=== PATIENT | female | born 1935 | race Caucasian/White ===

== ENCOUNTER 2017-03-17 08:43 | Day surgery (SDC) | payer MEDICARE, OTHER ==
--- NOTE | 2017-03-17 08:33 | HP ---
DATE OF SURGERY: 03/17/2017 HISTORY OF PRESENT ILLNESS: The patient is an 81 year-old who had some pain radiating to her chest once in a while upper GI. She has a small hiatal hernia with some tertiary contractions of the esophagus. Dr. Blevins referred her for upper endoscopy for further evaluation. PAST MEDICAL HISTORY: She has a leaky heart valve. She had some kidney disease in the past. PAST SURGICAL HISTORY: Cataract surgery in the past. Heart stents in the past. Hysterectomy, knee implants, rotator cuff in the past. MEDICATIONS: Fosamax, Allopurinol for some gout, Norvasc, aspirin, Tenormin, Lipitor, Calcitriol, calcium with vitamin D, Plavix, isosorbide mononitrate, levofloxacin for some hyperthyroidism, some PRN Nitrostat, [place]-3 fish oil, oxybutynin, pantoprazole, potassium chloride, Demadex. ALLERGIES: NKDA. FAMILY HISTORY: Diabetes, hypertension. SOCIAL HISTORY: No smoking or alcohol abuse. REVIEW OF SYSTEMS: Twelve systems reviewed per admission assessment. Other systems negative or noncontributory as above and per preadmission questionnaire. PHYSICAL EXAMINATION: GENERAL: No acute distress. HEENT: Sclerae nonicteric. NECK: No JVD. CHEST: Equal excursion, nonlabored breathing. CVS: Regular rate and rhythm. ABDOMEN: Soft. No peritoneal signs on office exam. EXTREMITIES: No significant edema. NEURO: Alert, moving extremities symmetrically. No gross motor deficits noted. IMPRESSION: History of some reflux, pain radiating into her chest with cardiac etiology ruled out. Dr. Blevins would like upper endoscopy for further evaluation. The risks and benefits explained in detail including but not limited to bleeding or infection, small risk of bowel injury or perforation possibly requiring open procedure, small risk of missed or nondiagnosis or incomplete exam possibly requiring barium study or referral to specialist or procedures. She understands and agrees to the planned procedure and will proceed with outpatient EGD possible biopsy.
[~2017-03-17 08:43] MED LIST: DIPRIVAN 200 MG/20 ML IV ONE; Ketamine HCl 50 MG/ML IV ONE; Lactated Ringers 1,000 ML IV ONE; Lactated Ringers 1,000 ML IV SCH
[2017-03-17] MEDS ORDERED: Lactated Ringers 1,000 ML IV ONE (12:13)
[2017-03-17 13:03] VITALS: BP 122/48; PULSE 75; O2SAT 98
--- NOTE | 2017-03-17 13:34 | OP ---
SURGERY DATE: 03/17/17 SURGERY TIME: 1210 PREOPERATIVE DIAGNOSIS: 1. HISTORY OF SOME EPIGASTRIC PAIN RADIATING TO HER CHEST. 2. HISTORY OF UPPER GASTROINTESTINAL SHOWING SMALL HIATAL HERNIAS AND TERTIARY CONTRACTIONS OF THE ESOPHAGUS. POSTOPERATIVE DIAGNOSIS: 1. MINIMAL TO MILD GASTRITIS. 2. SMALL HIATAL HERNIA. 3. TERTIARY CONTRACTION OF THE ESOPHAGUS. PROCEDURE: 1. Esophagogastroduodenoscopy with cold biopsy of the small bowel to evaluate for celiac sprue. 2. Cold biopsy of antrum to evaluate for Helicobacter pylori. 3. Cold biopsy of distal esophagus at the gastroesophageal junction to evaluate for very, very short segment of early distal gastroesophagitis vs just normal variation in the gastroesophageal junction. SURGEON: Dr. Dariusz Mehta. ANESTHESIA: MAC. ESTIMATED BLOOD LOSS: Minimal. INDICATIONS: As noted above. Risks and benefits explained in detail, but not limited to. Consent was obtained. DESCRIPTION OF PROCEDURE AND FINDINGS: The patient was taken to the OR, MAC anesthesia was introduced. After official time-out, no disagreement in planned procedure. Bite block positioned. Video gastroscope easily passed down the esophagus through the patent pylorus to the junction of the 2nd and 3rd portion of the duodenum. On withdrawal of the scope, she had a little bit of flattening of the folds in the duodenum. As she had had epigastric pain, warranted biopsy for sprue. Cold biopsy of the small bowel was obtained to evaluate for sprue. Good hemostasis noted. There were no signs of any obvious ulcers or other inflammation. Scope pulled back into the antrum. Had some minimal to mild gastritis. Given her symptoms, cold biopsy was taken to evaluate for Helicobacter pylori. Good hemostasis noted. There were no signs of any obvious ulcers on retroflex or no signs of any obvious polyps, masses, or other mucosal lesions. She did have a very small hiatal hernia at the gastroesophageal junction. Scope was straightened. The gastroesophageal junction noted at about 37 cm. Cold biopsy was taken of the margin of the gastroesophageal junction to evaluate for very, very short segment of early gastroesophagitis vs just normal variation of the gastroesophageal junction and the Z line. Otherwise, the scope was slowly, carefully withdrawn through the esophagus. There were no signs of any obvious mucosal lesions or masses. She did have some tertiary contractions of the esophagus. The patient tolerated the procedure well. There were no immediate complications. No obvious masses in the esophagus. Will see if she has any family out in the waiting area to discuss any findings with.
== END 2017-03-17 13:37 | disposition home or self-care (01) ==
LOC: SDC 08:43
PROVIDERS: ATTEND Surgery
PROC: 0DB88ZX Excision of Small Intestine, Via Natural or Artificial Opening Endoscopic, Diagnostic (ICD-10-PCS; principal; 2017-03-17)
PROC: 0DB78ZX Excision of Stomach, Pylorus, Via Natural or Artificial Opening Endoscopic, Diagnostic (ICD-10-PCS; 2017-03-17)
PROC: 0DB38ZX Excision of Lower Esophagus, Via Natural or Artificial Opening Endoscopic, Diagnostic (ICD-10-PCS; 2017-03-17)
DX: K29.70 Gastritis, unspecified, without bleeding (principal); K44.9 Diaphragmatic hernia without obstruction or gangrene; K22.4 Dyskinesia of esophagus; T82.03XA Leakage of heart valve prosthesis, initial encounter; N28.9 Disorder of kidney and ureter, unspecified; E05.90 Thyrotoxicosis, unspecified without thyrotoxic crisis or storm; Z79.899 Other long term (current) drug therapy
CPT/HCPCS: 00740; 36415; 88305; 99100; J2704

== ENCOUNTER 2017-11-17 09:55 | Day surgery (SDC) | payer MEDICARE, OTHER ==
--- NOTE | 2017-11-17 08:35 | HP ---
DATE OF SURGERY: 11/17/2017 HISTORY OF PRESENT ILLNESS: The patient is an 81 year-old with problems things sticking in her lower esophagus, feels like spaghettis stayed there for 30 minutes after eating. She has had problem with dysphagia. She is in need of endoscopic evaluation possible dilatation. PAST MEDICAL HISTORY: Chronic renal disease, hypertension. She had a leaky heart valve. She had some hypertension, hypercholesterolemia as renal disease, heart disease and gout in the past. PAST SURGICAL HISTORY: Cataract surgery, heart surgery, hysterectomy, knee implants, rotator cuff. She had upper endoscopy with dilatation in the past. MEDICATIONS: Alendronate, Allopurinol, amlodipine, aspirin, atenolol, atorvastatin, calcitriol, calcium with vitamin D, Plavix, isosorbide mononitrate, multivitamins, levothyroxine for some hyperthyroidism. Nitroglycerin PRN, omega-3 fish oil, oxybutynin, Protonix, potassium chloride, Demadex. ALLERGIES: NKDA. FAMILY HISTORY: Diabetes, hypertension. SOCIAL HISTORY: No smoking or alcohol abuse. REVIEW OF SYSTEMS: Twelve systems reviewed per admission assessment, other systems negative or noncontributory as above and per preadmission questionnaire. PHYSICAL EXAMINATION: GENERAL: No acute distress. HEENT: Sclerae nonicteric. NECK: No JVD. CHEST: Equal excursion, nonlabored breathing. CVS: Regular rate and rhythm. ABDOMEN: Soft. No peritoneal signs. EXTREMITIES: No significant edema. NEURO: Alert, oriented, moving extremities symmetrically. No gross motor deficits noted. IMPRESSION: Recurrent dysphagia with food getting stuck in her lower esophagus. I feel she would benefit from upper endoscopy possible biopsy possible dilatation pending operative findings. Risks and benefits explained in detail including but not limited to bleeding or infection, risk of bowel injury or perforation possibly requiring open procedure, risk of ongoing morbidity/mortality given her fragility, general risk of anesthesia, deep venous thrombosis, pulmonary embolism, pneumonia possibility the procedure may not improve her swallowing. If she has more of a functional or neurologic problem rather than a mechanical narrowing. She also understands that if the dilatation does improve her swallowing there is a possibility she could need it done again down the road. She understands all the above but not limited to. Will proceed with EGD possible biopsy possible dilatation as an outpatient under MAC anesthesia.
[~2017-11-17 09:55] MED LIST changes: -DIPRIVAN 200 MG/20 ML IV ONE; -Ketamine HCl 50 MG/ML IV ONE; -Lactated Ringers 1,000 ML IV ONE
[2017-11-17] MEDS ORDERED: DIPRIVAN 200 MG/20 ML IV ONE (09:56)
[2017-11-17] MEDS ORDERED: Ketamine HCl 50 MG/ML IJ ONE (09:56)
[2017-11-17] MEDS ORDERED: Lactated Ringers 1,000 ML IV ONE (10:21)
[2017-11-17 13:39] VITALS: O2SAT 99
[2017-11-17 13:42] VITALS: BP 132/65; PULSE 65
--- NOTE | 2017-11-18 07:40 | OP ---
SURGERY DATE/TIME: 11/17/2017 1149 PREOPERATIVE DIAGNOSIS: Dysphagia. POSTOPERATIVE DIAGNOSES: 1) Distal esophageal narrowing and spasm. 2) Tertiary contraction of the esophagus. 3) Small hiatal hernia. 4) Mild chronic gastritis. PROCEDURES: 1) EGD with cold biopsy of the antrum to evaluate for Helicobacter pylori. 2) Esophageal dilatation distal esophagus (size 20 balloon dilator). SURGEON: Dr. Dariusz Mehta. ANESTHESIA: MAC. ESTIMATED BLOOD LOSS: Minimal. INDICATIONS: As noted above. Risks and benefits explained in detail and not limited to and consent obtained. DESCRIPTION OF PROCEDURE AND FINDINGS: The patient is taken to the endoscopy room. MAC anesthesia introduced. After official time out and no disagreement with planned procedure, a bite block positioned. Video gastroscope easily passed down the proximal esophagus and in the distal esophagus there was esophageal narrowing and spasm. There was no obvious mass to biopsy but a distal esophageal narrowing and spasm. She had tertiary contractions of the esophagus. The scope was slowly and carefully passed through this area to the patent pylorus to the junction of the second and third portion of the duodenum. Duodenum and duodenal bulb grossly unremarkable. Back in the stomach she had some mild chronic gastritis. A cold biopsy taken to evaluate for LAURA-test. On retroflex she had a very small hiatal hernia about the width of the scope in addition the scope coming through there. No signs of any obvious masses. The scope was straightened and pulled back and gastroesophageal junction noted to be about 37 to 38 cm. Z-line was crisp. Again she had distal esophageal narrowing and she was having symptoms there I felt it warranted dilatation. The remainder of the esophagus grossly unremarkable other than tertiary contraction. The scope passed back down the stomach. Balloon catheter carefully inserted and pulled back up to the narrowed area and gradually inflated over three stages 40 to 45 seconds first stage and second stage again 40 to 45 seconds final stage 2 minutes. Balloon catheter is then released and withdrawn. Passed back through there and appeared to be more patent. There did not appear to be any obvious full thickness issues or injury secondary to dilatation. Otherwise other than tertiary contractions of the esophagus there were no signs of any obvious masses or other mucosal lesions. The scope was withdrawn. The patient tolerated the procedure well. Findings discussed with the family out in the waiting area.
== END 2017-11-17 13:30 | disposition home or self-care (01) ==
LOC: SDC 09:55
PROVIDERS: ATTEND Surgery
PROC: 0D738ZZ Dilation of Lower Esophagus, Via Natural or Artificial Opening Endoscopic (ICD-10-PCS; principal; 2017-11-17)
PROC: 0DB78ZX Excision of Stomach, Pylorus, Via Natural or Artificial Opening Endoscopic, Diagnostic (ICD-10-PCS; 2017-11-17)
DX: K22.2 Esophageal obstruction (principal); R13.10 Dysphagia, unspecified; K22.4 Dyskinesia of esophagus; K44.9 Diaphragmatic hernia without obstruction or gangrene; K29.50 Unspecified chronic gastritis without bleeding; I12.9 Hypertensive chronic kidney disease with stage 1 through stage 4 chronic kidney disease, or unspecified chronic kidney disease; N18.9 Chronic kidney disease, unspecified; I38 Endocarditis, valve unspecified; E78.00 Pure hypercholesterolemia, unspecified; M10.9 Gout, unspecified; Z79.899 Other long term (current) drug therapy
CPT/HCPCS: 87081; 94250; 99100; C1726; J2704

== ENCOUNTER 2020-03-02 01:55 | Emergency (ER) | payer MEDICARE ==
--- NOTE | 2020-03-02 02:26 | ERPHSYRPT ---
- History of Present Illness Time Seen by Provider: 03/02/20 02:20 Source: patient Exam Limitations: no limitations Physician History: Patient is an 84-year-old female presents to our ED via private vehicle for evaluation status post fall. Patient was walking in her home in the dark, walker door when she tripped on a box. Patient forgot that she had put a box in the walkway. Patient fell onto carpet. Patient hit her face on the floor. No LOC. No neck pain. Cervical spine cleared clinically. Patient began to bleed from her left nostril. Patient also observed a hematoma under her right eye. Patient became concerned and came to our ED for evaluation. No other injuries reported. Patient was ambulatory after the injury. Symptoms are mild to moderate in intensity. Palpation reproduce symptoms. Patient declined pain medication. No chest pain or shortness of breath. Patient is on Plavix and aspirin. Patient voices no other complaints or concerns at this time. Timing/Duration: today Severity: moderate Associated Symptoms: denies symptoms Allergies/Adverse Reactions: No Known Drug Allergies Allergy (Unverified 03/13/17 12:10) Home Medications: Alendronate Sodium 70 mg [Fosamax 70 MG] 70 mg PO WEEKLY 03/12/17 [History] Allopurinol 300 mg [Zyloprim 300 mg] 300 mg PO DAILY 03/12/17 [History] Atenolol 25 mg PO DAILY 03/12/17 [History] Atorvastatin Calcium [Lipitor 20MG Tablet] 20 mg PO HS 03/12/17 [History] Isosorbide Mononitrate 60 mg [Imdur 60MG] 60 mg PO BID 03/12/17 [History] Levothyroxine Sodium 75 Mcg [Synthroid 75 Mcg] 75 mcg PO DAILY 03/12/17 [History] Multivitamin [Multivitamins] 1 each PO DAILY 03/12/17 [History] Nitroglycerin 0.4 mg (Ed) [Nitrostat 0.4 MG (ED)] 0.4 mg SL UD 03/12/17 [History] [place]-3 Fatty Acids/Fish Oil [Fish Oil 1,000 mg Softgel] 1,000 mg PO BID 03/12/17 [History] Oxybutynin Chloride 5 mg PO DAILY 03/12/17 [History] PANTOPRAZOLE 40 mg Tablet [Protonix 40MG Tablet] 40 mg PO DAILY 03/12/17 [History] Potassium Chloride 20 Meq [Klor-Con 20 MEQ] 10 meq PO TID 03/12/17 [History] Torsemide [Demadex] 10 mg PO DAILY 03/12/17 [History] calcitrioL [Calcitriol] 0.25 mcg PO DAILY 03/12/17 [History] Spironolactone 25 mg [Aldactone 25 MG] 12.5 mg PO DAILY 11/17/17 [History] metOLazone [Metolazone] 5 mg PO DIRECTIONS UNKNOWN 03/02/20 [History] - Review of Systems Constitutional: No Symptoms, No Fever, No Chills Eyes: No Symptoms Ears, Nose, & Throat: No Symptoms, Other (Patient has bilateral hearing aids.) Respiratory: No Symptoms, No Cough, No Dyspnea Cardiac: No Symptoms, No Chest Pain, No Edema, No Syncope Abdominal/Gastrointestinal: No Symptoms, No Abdominal Pain, No Nausea, No Vomiting, No Diarrhea Genitourinary Symptoms: No Symptoms, No Dysuria Musculoskeletal: No Symptoms, No Back Pain, No Neck Pain Skin: No Symptoms, No Rash Neurological: No Symptoms, No Dizziness, No Focal Weakness, No Sensory Changes Psychological: No Symptoms Endocrine: No Symptoms Hematologic/Lymphatic: No Symptoms Immunological/Allergic: No Symptoms All Other Systems: Reviewed and Negative - Past Medical History Pertinent Past Medical History: Yes Neurological History: No Pertinent History ENT History: Cataracts Cardiac History: Angina, Coronary Artery Disease, High Cholesterol, Hypertension, Other Respiratory History: Sleep Apnea, Other Endocrine Medical History: Hypothyroidism Musculoskeletal History: No Pertinent History GI Medical History: GERD History: Renal Disease, Other Psycho-Social History: No Pertinent History Female Reproductive Disorders: No Pertinent History Other Medical History: some kidney failure,stage3. Short of breath, pt states has a heart valve problem. - Past Surgical History Past Surgical History: Yes Neuro Surgical History: No Pertinent History Cardiac: Cardiac Catheterization, Cardiac Stent Respiratory: No Pertinent History Gastrointestinal: Cholecystectomy Genitourinary: No Pertinent History Musculoskeletal: Joint Replacement Female Surgical History: Hysterectomy Other Surgical History: knee replacement x2. rotator cuff. cataracts - Social History Smoking Status: Former smoker Exposure to second hand smoke: Yes (on occassion) Drug Use: none - Nursing Vital Signs Nursing Vital Signs: Initial Vital Signs Temperature 98 F 03/02/20 02:06 Pulse Rate 79 03/02/20 02:06 Respiratory Rate 24 03/02/20 02:06 Blood Pressure 165/78 03/02/20 02:06 O2 Sat by Pulse Oximetry 96 03/02/20 02:06 Pain Scale Pain Intensity 3 - Physical Exam General Appearance: no apparent distress, alert Eye Exam: PERRL/EOMI, eyes nml inspection Ears, Nose, Throat Exam: normal ENT inspection, TMs normal, pharynx normal, moist mucous membranes, other (Hematoma under right eye. Dry blood left nare. No active bleeding.) Neck Exam: normal inspection, non-tender, supple, full range of motion Respiratory Exam: normal breath sounds, chest tenderness, lungs clear, No respiratory distress Cardiovascular Exam: regular rate/rhythm, normal heart sounds, normal peripheral pulses Gastrointestinal/Abdomen Exam: soft, normal bowel sounds, No tenderness, No mass Back Exam: normal inspection, normal range of motion, No CVA tenderness, No vert ebral tenderness Extremity Exam: normal inspection, normal range of motion, pelvis stable Neurologic Exam: alert, oriented x 3, cooperative, normal mood/affect, nml cerebellar function, nml station & gait, sensation nml, other (Neuro exam nonremarkable.), No motor deficits Skin Exam: normal color, warm, dry, No rash Lymphatic Exam: No adenopathy SpO2 Interpretation: normal SpO2: 97 O2 Delivery: Room Air - Course Nursing assessment & vital signs reviewed: Yes - CT Exams Head CT Interpretation: Tele-radiologist Report (No acute intracranial pathology. Bilateral nasal fractures.) Maxillofacial Bones CT Interpretation: Tele-radiologist Report (Bilateral nasal fractures indeterminate displaced fracture of the right mandibular condyle.) Ordered Tests: Active Orders 24 hr Category Date Time Status FACIAL BONES WO CONTRAST [CT] Stat Exams 03/02/20 02:08 Taken HEAD WITHOUT CONTRAST [CT] Stat Exams 03/02/20 02:08 Taken - Progress Progress: improved Progress Note: 03/02/20 05:17 Patient reassessed. She feels well. No active pain. Patient declined pain medication. Nasal fracture and mandibular condyle fracture observed on imaging studies. Case discussed with Dr. Jarrell who will see patient today in his office. He advised holding off on antibiotics at this time. His office is located at [facility] suite will she get her imaging for [address]. He will see patient this morning at [address] Jarrell's office number is area code [phone]. Patient was given a CD with her imaging studies for her office visit. Plan of care discussed with patient. She agrees to follow-up as discussed. Discussed with Dr.: Other (Gavin Jarrell will see patient today in his office at [facility] at 9 AM this morning [place]. [address]) - Departure Departure Disposition: Home Clinical Impression: Fall, Nasal fracture, Closed fracture of condylar process of mandible, Cervical spine arthritis, Periorbital hematoma of right eye, Atherosclerotic cardiovascular disease Condition: Stable Critical Care Time: No Referrals: LOLI WESTBROOK [Primary Care Provider] - Additional Instructions: Dr. Jarrell will see you this morning at 9am [address]. Please take your imaging studies to the office visit. Telephone number is [phone] Discharge/Care Plan VADIM QUISPE was seen on 03/02/20 in the Emergency Room. The patient was counseled regarding Diagnosis,Lab results, Imaging studies, need for follow up and when to return to the Emergency Room. Prescriptions given: Discharge Note I have spoken with the patient and/or caregivers. I have explained the patient's condition, diagnosis and treatment plan based on the information available to me at this time. I have answered the patient's and/or caregiver's questions and addressed any concerns. The patient and/or caregivers have as good understanding of the patient's diagnosis, condition and treatment plan as can be expected at this point. The vital signs have been stable. The patient's condition is stable and appropriate for discharge from the emergency department. The patient will pursue further outpatient evaluation with the primary care physician or other designated or consulting physician as outlined in the discharge instructions. The patient and/or caregivers are agreeable to this plan of care and follow-up instructions have been explained in detail. The patient and/or caregivers have received these instruction. The patient/and or caregivers are aware that any significant change in condition or worsening of symptoms should prompt an immediate return to this or the closest emergency department or call 911.
[2020-03-02 05:21] VITALS: O2SAT 97
[2020-03-02 05:22] VITALS: BP 156/65; PULSE 79
--- NOTE | 2020-03-02 09:25 | XRAY ---
Indication: Pain, bruising, and right periorbital swelling following fall. Headache. Multiple contiguous axial images obtained through the head without contrast. Comparison: None Age-appropriate global atrophy. No acute intracranial hemorrhage, abnormal extra-axial fluid collection, or mass effect. Fourth ventricle is midline without hydrocephalus. Bal-white matter differentiation preserved. Minimally depressed fracture involving the bridge of the nasal bone with soft tissue swelling and blood in both nasal cavities. Remaining bony calvarium intact. Minimal opacification left mastoid air cells presumed inflammatory. CT facial bones reported separately. Impression: Normal aging brain. No acute intracranial abnormalities. Minimal opacification left mastoid air cells presumed inflammatory. Nasal bone fracture reported separately. Comment: Preliminary interpretation was made by [facility]. No critical discrepancy.
--- NOTE | 2020-03-02 09:31 | XRAY ---
Indication: Right periorbital pain, bruising, and swelling following fall. Headache. Multiple contiguous axial images obtained through the facial bones. Sagittal and coronal reformatted images obtained. Comparison: None Patient is edentulous. Mild depressed fractures seen of the bridge of the nasal bone with overlying soft tissue swelling. Opacification of both nasal passages and tiny fluid leveling in both maxillary sinuses presumed blood. Moderate right facial soft tissue swelling/hematoma. No other acute fracture, suspicious bony lesions, or radiopaque foreign body. Orbits including roof, russell, and floor is intact. Remaining noncontrasted soft tissues unremarkable. Osseous structures demineralized consistent with patient's age. Visualized cervical spine demonstrates mild multilevel degenerative spondylosis including [address] head reported severally. Impression: 1. Mild depressed nasal bone fracture as detailed with nasal/right facial soft tissue swelling. 2. Osteopenia and cervical degenerative spondylosis with minimal grade 1 C4 spondylolisthesis. Comment: Preliminary interpretation was made by [facility]. No critical discrepancy.
== END 2020-03-02 05:35 | disposition home or self-care (01) ==
LOC: ED 01:55
DX: S02.2XXA Fracture of nasal bones, initial encounter for closed fracture (principal); S02.611A Fracture of condylar process of right mandible, initial encounter for closed fracture; S06.9X0A Unspecified intracranial injury without loss of consciousness, initial encounter; W01.198A Fall on same level from slipping, tripping and stumbling with subsequent striking against other object, initial encounter; Y93.01 Activity, walking, marching and hiking; Y92.008 Other place in unspecified non-institutional (private) residence as the place of occurrence of the external cause; M46.92 Unspecified inflammatory spondylopathy, cervical region; S00.11XA Contusion of right eyelid and periocular area, initial encounter; I25.10 Atherosclerotic heart disease of native coronary artery without angina pectoris; I12.9 Hypertensive chronic kidney disease with stage 1 through stage 4 chronic kidney disease, or unspecified chronic kidney disease; N18.3 Chronic kidney disease, stage 3 (moderate); I51.9 Heart disease, unspecified; Z79.899 Other long term (current) drug therapy
CPT/HCPCS: 70450; 70486; 99283

== ENCOUNTER 2021-05-08 17:57 | Emergency (ER) | payer MEDICARE ==
--- NOTE | 2021-05-08 18:45 | ERPHSYRPT ---
- History of Present Illness Time Seen by Provider: 05/08/21 18:00 Source: patient Exam Limitations: no limitations Patient Subjective Stated Complaint: SOB since DC from [facility] in [place] 04/27/21 Triage Nursing Assessment: pt to ED c/o SOB since DC from heart surgery at [facility]. pt was dc on 04/27/21 and has felt SOB since then. states no change today but is tachipnic and noted labored breathing. denies pain now. no CP. lung sounds clear and equal bilaterally. heart sounds clear. noted scar from open heart as well as scar upper left chest from pacemaker placement during that stay as well. both appear without obvious signs of infection. Physician History: Patient is an 85-year-old female 2 weeks status post open heart surgery. Patient states she had a triple bypass, mitral valve and aortic valve replacement along with 2 stents. Patient was discharged from [facility] approximately 10 days ago. Patient has been experiencing shortness of breath since. Patient states her shortness of breath has gotten significantly worse. No active chest pain. Patient called her surgeon office who advised to come to our ED for a chest x-ray. No associated nausea or vomiting. No fever. No rash. No diarrhea. Symptoms are constant. Symptoms are moderate in intensity. No specific worsening improving factors. Patient did observe that her bilateral lower extremities are swollen which is atypical for her. She voices other complaints or concerns at this time. Timing/Duration: day(s) (Shortness of breath worsening over the past 3 days.) Activities at Onset: none Severity of Dyspnea-Max: moderate Severity of Dyspnea-Current: moderate Possible Cause: no prior episodes Modifying Factors: Improves With: exertion Associated Symptoms: ankle swelling, No calf pain, No dizziness, No lightheadedness, No painful breathing, No productive cough Allergies/Adverse Reactions: No Known Drug Allergies Allergy (Verified 05/08/21 18:05) Home Medications: Alendronate Sodium 70 mg [Fosamax 70 MG] 70 mg PO WEEKLY 03/12/17 [History] Allopurinol 300 mg [Zyloprim 300 mg] 300 mg PO DAILY 03/12/17 [History] Atenolol 25 mg PO DAILY 03/12/17 [History] Atorvastatin Calcium [Lipitor 20MG Tablet] 20 mg PO HS 03/12/17 [History] Isosorbide Mononitrate 60 mg [Imdur 60MG] 60 mg PO BID 03/12/17 [History] Levothyroxine Sodium 75 Mcg [Synthroid 75 Mcg] 75 mcg PO DAILY 03/12/17 [History] Multivitamin [Multivitamins] 1 each PO DAILY 03/12/17 [History] Nitroglycerin 0.4 mg (Ed) [Nitrostat 0.4 MG (ED)] 0.4 mg SL UD 03/12/17 [History] Patrick-3 Fatty Acids/Fish Oil [Fish Oil 1,000 mg Softgel] 1,000 mg PO BID 03/12/17 [History] Oxybutynin Chloride 5 mg PO DAILY 03/12/17 [History] PANTOPRAZOLE 40 mg Tablet [Protonix 40MG Tablet] 40 mg PO DAILY 03/12/17 [History] Potassium Chloride 20 Meq [Klor-Con 20 MEQ] 10 meq PO TID 03/12/17 [History] Torsemide [Demadex] 10 mg PO DAILY 03/12/17 [History] calcitrioL [Calcitriol] 0.25 mcg PO DAILY 03/12/17 [History] Spironolactone 25 mg [Aldactone 25 MG] 12.5 mg PO DAILY 11/17/17 [History] metOLazone [Metolazone] 5 mg PO DIRECTIONS UNKNOWN 03/02/20 [History] Hx Tetanus, Diphtheria Vaccination/Date Given: Yes Hx Influenza Vaccination/Date Given: Yes Hx Pneumococcal Vaccination/Date Given: Yes Immunizations Up to Date: Yes Travel Risk - International Travel Have you traveled outside of the country in past 3 weeks: No - Coronavirus Screening Are you exhibiting any of the following symptoms?: Yes Symptoms: Shortness of Breath Close contact with a COVID-19 positive Pt in past 14-21 Days: No - Vaccine Status Have you recieved a Covid-19 vaccination: Yes Franchise Business Consultant: JRKICKZ - Vaccination Dates Date of 2cond Vaccination (if applicable): october - Review of Systems Constitutional: No Symptoms, No Fever, No Chills Eyes: No Symptoms Ears, Nose, & Throat: No Symptoms Respiratory: No Symptoms, No Cough, No Dyspnea Cardiac: No Symptoms, No Chest Pain, No Edema, No Syncope Abdominal/Gastrointestinal: No Symptoms, No Abdominal Pain, No Nausea, No Vomiting, No Diarrhea Genitourinary Symptoms: No Symptoms, No Dysuria Musculoskeletal: No Symptoms, No Back Pain, No Neck Pain Skin: No Symptoms, No Rash Neurological: No Symptoms, No Dizziness, No Focal Weakness, No Sensory Changes Psychological: No Symptoms Endocrine: No Symptoms Hematologic/Lymphatic: No Symptoms Immunological/Allergic: No Symptoms All Other Systems: Reviewed and Negative - Past Medical History Pertinent Past Medical History: Yes Neurological History: No Pertinent History ENT History: Cataracts Cardiac History: Angina, Coronary Artery Disease, High Cholesterol, Hyperte nsion, Other Respiratory History: Sleep Apnea, Other Endocrine Medical History: Hypothyroidism Musculoskeletal History: No Pertinent History GI Medical History: GERD History: Renal Disease, Other Psycho-Social History: No Pertinent History Female Reproductive Disorders: No Pertinent History Other Medical History: some kidney failure,stage3. Short of breath, pt states has a heart valve problem. gout - Past Surgical History Past Surgical History: Yes Neuro Surgical History: No Pertinent History Cardiac: CABG, Cardiac Catheterization, Cardiac Stent, Pacemaker Respiratory: No Pertinent History Gastrointestinal: Cholecystectomy Genitourinary: No Pertinent History Musculoskeletal: Joint Replacement Female Surgical History: Hysterectomy Other Surgical History: knee replacement x2. rotator cuff. cataracts. bladder stimulator - Social History Smoking Status: Former smoker Exposure to second hand smoke: Yes (on occassion) Drug Use: none Patient Lives Alone: Yes - Female History Hx Now: No - Nursing Vital Signs Nursing Vital Signs: Initial Vital Signs Temperature 97.4 F 05/08/21 17:57 Pulse Rate 97 H 05/08/21 17:57 Respiratory Rate 40 H 05/08/21 17:57 Blood Pressure 177/80 05/08/21 17:57 O2 Sat by Pulse Oximetry 97 05/08/21 17:57 Pain Scale Pain Intensity 0 - Physical Exam General Appearance: mild distress, alert Eye Exam: PERRL/EOMI Ears, Nose, Throat Exam: hearing grossly normal, normal ENT inspection Neck Exam: normal inspection, supple Respiratory Exam: airway intact, other (Diminished breath sounds bilaterally, more so at left base. Patient mildly tachypneic.), No chest tenderness, No respiratory distress, No accessory muscle use Cardiovascular/Chest Exam: normal heart sounds, regular rate/rhythm Abdominal/Gastrointestinal Exam: soft, No tenderness, No distention, No mass Extremity Exam: normal range of motion, normal inspection, pedal edema (Bilateral extremity pedal edema.), No non-tender Neurologic Exam: alert, oriented x 3, cooperative, processes chemical design engineer II-XII nml as tested, sensation nml, No motor deficits Skin Exam: normal color, warm, No dry SpO2 Interpretation: normal SpO2: 97 O2 Delivery: Room Air - Course Nursing assessment & vital signs reviewed: Yes EKG Interpreted by Me: RATE (93, atrial sensed ventricular paced rhythm.) - Radiology Exams Chest X-ray Interpretation: Teleradiologist Report (Large left pleural effusion with left basilar atelectasis. Left chest cardiac pacing device. Sternotomy wires. Old right sided rib fractures.) Ordered Tests: Active Orders 24 hr Category Date Time Status Chamber Worker STAT Care 05/08/21 18:45 Active EKG-ER Only STAT Care 05/08/21 18:45 Active IV Insertion STAT Care 05/08/21 18:45 Active Pulse Oximetry (ED) STAT Care 05/08/21 18:45 Active CHEST 1 VIEW (PORTABLE) Stat Exams 05/08/21 18:45 Taken CBC W DIFF Stat Lab 05/08/21 19:15 Completed CMP Stat Lab 05/08/21 19:15 Completed Manual Differential NC Stat Lab 05/08/21 19:15 Completed NT PRO BNP Stat Lab 05/08/21 19:15 Completed TROPONIN Q3H Lab 05/08/21 19:15 Completed TROPONIN Q3H Lab 05/08/21 21:30 Completed TROPONIN Q3H Lab 05/09/21 01:05 Completed TROPONIN Q3H Lab 05/09/21 04:48 Completed TROPONIN Q3H Lab 05/09/21 06:45 Received Medication Summary Discontinued Medications Generic Name Dose Route Start Last Admin Trade Name Freq PRN Reason Stop Dose Admin Aspirin 324 mg 05/09/21 04:55 05/09/21 05:02 Baby Aspirin 81 Mg Chew PO 05/09/21 04:56 324 mg STAT ONE Administration Furosemide 40 mg 05/08/21 20:10 05/08/21 20:12 Lasix 40 Mg/4 Ml IV 05/08/21 20:11 40 mg STAT ONE Administration Furosemide Confirm 05/08/21 20:11 Lasix 40 Mg/4 Ml Administered 05/08/21 20:12 Dose 40 mg .ROUTE .STK-MED ONE Nitroglycerin 1 gm 05/09/21 04:52 05/09/21 04:57 Nitro-Bid 2% Ud Packets TOP 05/09/21 04:53 1 gm STAT ONE Administration Nitroglycerin Confirm 05/09/21 04:57 Nitro-Bid 2% Ud Packets Administered 05/09/21 04:58 Dose 1 gm .ROUTE .STK-MED ONE Lab/Rad Data: Laboratory Result Diagrams 05/08/21 19:15 05/08/21 19:15 Laboratory Results 05/09/21 05/09/21 05/08/21 Range/Units 04:48 01:05 21:30 WBC (4.0-10.5) K/mm3 RBC (4.1-5.4) M/mm3 Hgb (12.0-16.0) gm/dl Hct (35-47) % MCV (78-100) fl MCH (26-32) pg MCHC (32-36) g/dl RDW (11.5-14.0) % Plt Count (150-450) K/mm3 MPV (7.5-11.0) fl Segmented Neutrophils (36.0-66.0) % Lymphocytes (Manual) (24-44) % Monocytes (Manual) (0.0-12.0) % Eosinophils (Manual) (0.00-3.0) % Platelet Estimate (NORMAL) RBC Morphology Sodium (137-145) mmol/L Potassium (3.5-5.1) mmol/L Chloride (98-107) mmol/L Carbon Dioxide (22-30) mmol/L Anion Gap (5-15) MEQ/L BUN (7-17) mg/dL Creatinine (0.52-1.04) mg/dL Estimated GFR ML/MIN Glucose (74-106) mg/dL Calcium (8.4-10.2) mg/dL Total Bilirubin (0.2-1.3) mg/dL AST (14-36) U/L ALT (0-35) U/L Alkaline Phosphatase (38-126) U/L Troponin I 0.099 H* 0.102 H* 0.104 H* (0.000-0.034) ng/mL NT-Pro-B Natriuret Pep (0-1800) pg/mL Serum Total Protein (6.3-8.2) g/dL Albumin (3.5-5.0) g/dL 05/08/21 05/08/21 05/08/21 Range/Units 19:15 19:15 19:15 WBC 12.9 H (4.0-10.5) K/mm3 RBC 3.66 L (4.1-5.4) M/mm3 Hgb 10.8 L (12.0-16.0) gm/dl Hct 35.5 (35-47) % MCV 97.0 (78-100) fl MCH 29.5 (26-32) pg MCHC 30.4 L (32-36) g/dl RDW 15.9 H (11.5-14.0) % Plt Count 232 (150-450) K/mm3 MPV 10.6 (7.5-11.0) fl Segmented Neutrophils 80 H (36.0-66.0) % Lymphocytes (Manual) 11 L (24-44) % Monocytes (Manual) 8 (0.0-12.0) % Eosinophils (Manual) 1 (0.00-3.0) % Platelet Estimate NORMAL (NORMAL) RBC Morphology NORMAL Sodium 140 (137-145) mmol/L Potassium 4.8 (3.5-5.1) mmol/L Chloride 104 (98-107) mmol/L Carbon Dioxide 26 (22-30) mmol/L Anion Gap 14.1 (5-15) MEQ/L BUN 36 H (7-17) mg/dL Creatinine 1.42 H (0.52-1.04) mg/dL Estimated GFR 37.4 ML/MIN Glucose 101 (74-106) mg/dL Calcium 10.2 (8.4-10.2) mg/dL Total Bilirubin 1.40 H (0.2-1.3) mg/dL AST 38 H (14-36) U/L ALT 23 (0-35) U/L Alkaline Phosphatase 84 (38-126) U/L Troponin I 0.105 H* (0.000-0.034) ng/mL NT-Pro-B Natriuret Pep 8940 H (0-1800) pg/mL Serum Total Protein 6.5 (6.3-8.2) g/dL Albumin 3.9 (3.5-5.0) g/dL - Progress Progress: improved Air Movement: good Progress Note: Patient accepted at [facility] by Dr. Balderas. We tried to obtain immediate transfer but were unsuccessful. We were able to arrange ground transport. Anti cipated arrival time is 0700 to 0730. Patients troponin are down-trending. Patient feels better. NO CP or active SOB. Vitals stable. Patient agrees to transfer to [facility] for further evaluation and treatment. She voices no other complaints concerns at this time. 05/09/21 07:13 Blood Culture(s) Obtained: No Antibiotics given: No Counseled pt/family regarding: lab results, diagnosis, rad results - Departure Departure Disposition: Transfer Clinical Impression: CHF (congestive heart failure), Chronic renal insufficiency, Elevated brain natriuretic peptide (BNP) level, Elevated troponin, Pleural effusion Condition: Stable Critical Care Time: No Referrals: LOLI WESTBROOK MD [Primary Care Provider] - Instructions: Heart Failure
[2021-05-08 19:50] LABS: Hematocrit 35.5 % (35-47); Hemoglobin 10.8 gm/dl (12.0-16.0); Mean Corpuscular Hemoglobin 29.5 pg (26-32); Mean Corpuscular Hgb Concent. 30.4 g/dl (32-36); Mean Platelet Volume 10.6 fl (7.5-11.0); Platelet Count 232 K/mm3 (150-450); Red Blood Count 3.66 M/mm3 (4.1-5.4); Red Cell Distribution Width 15.9 % (11.5-14.0); White Blood Count 12.9 K/mm3 (4.0-10.5)
[2021-05-08 20:07] LABS: ALBUMIN 3.9 g/dL (3.5-5.0); ANION GAP 14.1 MEQ/L (5-15); BILIRUBIN,TOTAL 1.4 mg/dL (0.2-1.3); Calcium 10.2 mg/dL (8.4-10.2); Creatinine 1 1.42 mg/dL (0.52-1.04); EST GLOMERULAR FILTRATION RATE 37.4 ML/MIN; Potassium 4.8 mmol/L (3.5-5.1); Total Protein 6.5 g/dL (6.3-8.2)
[2021-05-08] MEDS ORDERED: Lasix 40 MG/4 ML IV ONE (20:10)
[2021-05-08] MEDS ORDERED: Lasix 40 MG/4 ML ONE (20:11)
[2021-05-08 21:32] LABS: Eosinophil 1 % (0.00-3.0); Lymphocytes 11 % (24-44); Monocyte 8 % (0.0-12.0); Neutrophils 80 % (36.0-66.0); Total Cells Counted 100
[2021-05-08 21:34] LABS: Platelet Estimate NORMAL (NORMAL)
[2021-05-09] MEDS ORDERED: NITRO-BID 2% UD PACKETS TOP ONE (04:52)
[2021-05-09] MEDS ORDERED: BABY ASPIRIN 81 MG CHEW PO ONE (04:55)
[2021-05-09] MEDS ORDERED: NITRO-BID 2% UD PACKETS ONE (04:57)
[2021-05-09 07:25] VITALS: BP 138/75
[2021-05-09 08:07] VITALS: PULSE 91; O2SAT 94
--- NOTE | 2021-05-09 09:08 | XRAY ---
Indication: Dyspnea. Status post heart surgery. Comparison: Made 2019. Portable chest demonstrates interval cardiac valve replacement surgery with new left dual-lead pacemaker. New moderate left and small right base effusions/atelectasis. No pneumothorax. Bony thorax remains intact again with osteopenia, degenerative changes, and new finding old right 4 rib fracture. Comment: Preliminary interpretation made by [facility]. No critical discrepancy.
== END 2021-05-09 08:09 ==
LOC: ED 17:57
DX: R06.02 Shortness of breath (principal); I50.89 Other heart failure; R77.8 Other specified abnormalities of plasma proteins; I25.10 Atherosclerotic heart disease of native coronary artery without angina pectoris; E78.5 Hyperlipidemia, unspecified; I10 Essential (primary) hypertension; N18.30 Chronic kidney disease, stage 3 unspecified; M25.473 Effusion, unspecified ankle; Z20.822 Contact with and (suspected) exposure to COVID-19; Z79.899 Other long term (current) drug therapy
CPT/HCPCS: 36415; 71045; 80053; 83880; 84484; 85025; 93005; 93041; 94760; 96374; 99285; J1940; A9270-GY

== ENCOUNTER 2025-06-27 19:43 | Emergency (ER) | payer MEDICARE ==
--- NOTE | 2025-06-27 19:51 | ERPHSYRPT ---
- History of Present Illness Time Seen by Provider: 06/27/25 19:51 Source: patient Exam Limitations: no limitations Physician History: This is an 89-year old white female patient who presents to the emergency department at the request of the office of Dr. Guy, the patient's clerical specialist/oncologist. The patient is on Coumadin and is being followed at the [facility] Coumadin clinic she last took her Coumadin medication this morning she had blood drawn at approximately 1540 this afternoon. Patient has been having some weakness the last 2 or 3 days which is no different for her. She has no abdominal pain. She has no shortness of breath and she denies chest pain. The patient's PT level typically runs between 15 and 35. Today, the PT measured 82.3. Her INR level typically runs between 1.38 and as high as 6.82. These levels were all evaluated over the last 5 months. Today's INR level was 7.96. Therefore, the patient was told to come to the emergency department. Patient has a history of depression, gastroesophageal reflux disease, hypothyroidism, hyperlipidemia, gout, COPD and asthma. She has not had any spontaneous bleeding. Timing/Duration: today Severity: mild Associated Symptoms: denies symptoms Allergies/Adverse Reactions: No Known Drug Allergies Allergy (Verified 06/27/25 19:45) Home Medications: Allopurinol 300 mg [Zyloprim 300 mg] 300 mg PO DAILY 03/12/17 [History] PANTOPRAZOLE 40 mg Tablet [Protonix 40MG Tablet] 40 mg PO DAILY 03/12/17 [History] Potassium Chloride 20 Meq [Klor-Con 20 MEQ] 10 meq PO BID 03/12/17 [History] Torsemide [Demadex] 10 mg PO DAILY 03/12/17 [History] calcitrioL [Calcitriol] 0.25 mcg PO MOWEFR@1000 03/12/17 [History] Atorvastatin Calcium [Lipitor 40Mg] 20 mg PO HS 01/26/22 [History] Albuterol Common Canister [Ventolin Common Canister] 2 puff IH Q4HPRN PRN 03/04/25 [History] Denosumab 60 mg [Prolia 60 mg Injection] 60 mg SQ Q180D 03/04/25 [History] Fluticasone/Vilanterol [Breo Ellipta 100-25 Mcg INH] 1 each IH DAILY 03/04/25 [History] Levothyroxine Sodium [Euthyrox] 50 mcg PO .SEE RX NOTE 03/04/25 [History] Methenamine Hippurate 1 gm PO DAILY 03/04/25 [History] Metoprolol Succinate 50 mg [Toprol Xl 50 MG] 50 mg PO DAILY 03/04/25 [History] Sertraline HCl [Zoloft] 25 mg PO DAILY 03/04/25 [History] Sildenafil Citrate 20 mg PO TID 03/04/25 [History] Warfarin Sodium 6 mg PO DAILY 06/27/25 [History] Hx Tetanus, Diphtheria Vaccination/Date Given: Yes Hx Influenza Vaccination/Date Given: Yes Hx Pneumococcal Vaccination/Date Given: Yes Travel Risk - International Travel Have you traveled outside of the country in past 3 weeks: No - Emerging Infectious Disease Are you exhibiting symptoms associated with any current EIDs: No - Review of Systems Constitutional: Weakness (Chronic and no different than typical for) Eyes: No Symptoms Ears, Nose, & Throat: No Symptoms Respiratory: No Symptoms Cardiac: No Symptoms Abdominal/Gastrointestinal: No Symptoms Genitourinary Symptoms: No Symptoms Musculoskeletal: No Symptoms Skin: No Symptoms Neurological: No Symptoms Psychological: No Symptoms Endocrine: No Symptoms Hematologic/Lymphatic: No Symptoms - Past Medical History Pertinent Past Medical History: Yes Neurological History: No Pertinent History ENT History: Cataracts Cardiac History: Angina, Coronary Artery Disease, High Cholesterol, Hypertension, Other Respiratory History: Sleep Apnea, Other Endocrine Medical History: Hypothyroidism Musculoskeletal History: No Pertinent History, Osteoporosis GI Medical History: GERD History: Renal Disease, Other Psycho-Social History: No Pertinent History Female Reproductive Disorders: No Pertinent History Other Medical History: some kidney failure,stage3. extensive heart surgery. gout - Past Surgical History Past Surgical History: Yes Neuro Surgical History: No Pertinent History Cardiac: CABG, Cardiac Catheterization, Cardiac Stent, Pacemaker Respiratory: No Pertinent History Gastrointestinal: Cholecystectomy Genitourinary: No Pertinent History Musculoskeletal: Joint Replacement Female Surgical History: Hysterectomy Other Surgical History: knee replacement x2. rotator cuff. cataracts. bladder stimulator - Social History Smoking Status: Former smoker Drug Use: none - Nursing Vital Signs Nursing Vital Signs: Initial Vital Signs Temperature 99 F 06/27/25 19:46 Pulse Rate 79 06/27/25 19:46 Respiratory Rate 18 06/27/25 19:46 Blood Pressure 139/75 06/27/25 19:46 O2 Sat by Pulse Oximetry 94 L 06/27/25 19:46 Pain Scale Pain Intensity 0 - Physical Exam General Appearance: no apparent distress, alert Eye Exam: PERRL/EOMI, eyes nml inspection Ears, Nose, Throat Exam: normal ENT inspection, moist mucous membranes Neck Exam: normal inspection, non-tender, supple, full range of motion Respiratory Exam: normal breath sounds, lungs clear, airway intact, No chest tenderness, No respiratory distress Cardiovascular Exam: regular rate/rhythm, normal heart sounds, normal peripheral pulses Gastrointestinal/Abdomen Exam: soft, normal bowel sounds, No tenderness Pelvic Exam: not done Rectal Exam: not done Back Exam: normal inspection, normal range of motion, No CVA tenderness, No vertebral tenderness Extremity Exam: normal inspection, normal range of motion, pelvis stable Neurologic Exam: alert, oriented x 3, cooperative, branch store manager II-XII nml as tested, nml cerebellar function Skin Exam: normal color, warm, dry SpO2 Interpretation: borderline oxygenation O2 Delivery: Room Air - Course Nursing assessment & vital signs reviewed: Yes Ordered Tests: Active Orders 24 hr Category Date Time Status CBC W DIFF Stat Lab 06/27/25 20:00 Completed PROTIME WITH INR Stat Lab 06/27/25 20:00 Received Lab/Rad Data: Laboratory Result Diagrams 06/27/25 20:00 Laboratory Results 06/27/25 Range/Units 20:00 WBC 11.1 H (3.98-10.04) x10^3/uL RBC 3.95 (3.93-5.22) x10^6/uL Hgb 11.5 (11.2-15.7) g/dL Hct 36.0 (34.1-44.9) % MCV 91.1 (79.4-94.8) fL MCH 29.1 (25.6-32.2) pg MCHC 31.9 L (32.2-35.5) g/dL RDW 13.9 (11.7-14.4) % Plt Count 220 (182-369) x10^3/uL MPV 11.0 (9.4-12.3) fL Gran % 79.0 H (34.0-71.1) % Immature Gran % (Auto) 0.5 H (0.001-0.429) % Nucleat RBC Rel Count 0.0 (0.00-0.2) % Eos # (Auto) 0.08 (0.04-0.36) x10^3/uL Immature Gran # (Auto) 0.05 H (0.001-0.031) x10^3u/L Absolute Lymphs (auto) 1.08 L (1.18-3.74) x10^3/uL Absolute Monos (auto) 1.03 H (0.24-0.86) x10^3/uL Absolute Nucleated RBC 0.00 (0.00-0.012) x10^3u/L Lymphocytes % 9.7 L (19.3-51.7) % Monocytes % 9.3 (4.7-12.5) % Eosinophils % 0.7 (0.7-5.8) % Basophils % 0.8 (0.1-1.2) % Absolute Granulocytes 8.76 H (1.56-6.13) x10^3/uL Basophils # 0.09 H (0.01-0.08) x10^3/uL - Progress Progress: unchanged, re-examined Progress Note: 06/27/25 21:08 My medical decision making and the assignment of low complexity of this patient's medical issue today is based on review of the patient's past medical history, reviewed patient's medication list, reviewed patient drug allergy list, history of present illness and physical findings on examination. The workup in this patient includes repeat CBC and PT/INR. Differential diagnosis includes but is not limited to poorly controlled anticoagulation, anemia, medication noncompliance I interpreted the patient's laboratory data results. Based on the laboratory data results, the patient's PT is reported to be greater than 90 and the INR is greater than 8. 06/27/25 21:10 Patient has high INR without evidence of bleeding. We will have the patient hold her warfarin and provide her with oral vitamin K. Counseled pt/family regarding: lab results, diagnosis, need for follow-up Medical Desision Making - Independent Historian Additional History obtained from: Family - Diagnostic Testing Diagnostic test were ordered, analyzed, and reviewed by me: Yes - Risk of complications Low Risk: Low risk of morbidity from additional dx testing or treatment - Departure Departure Disposition: Home Clinical Impression: Over-anticoagulated, Elevated INR Condition: Stable Critical Care Time: No Referrals: [facility] [Primary Care Provider, UNKNOWN] - Follow up/PCP as directed Additional Instructions: Do not take your Coumadin/warfarin until further notice by the Coumadin clinic. Call the Coumadin clinic at [facility] tomorrow morning at 8 AM, 06/28/2025, to obtain further instructions and management.
[2025-06-27 19:54] VITALS: TEMP 99
[2025-06-27 20:24] LABS: BASOPHIL % 0.8 % (0.1-1.2); Basophil (Absolute #) 0.09 x10^3/uL (0.01-0.08); Eosinophil (Absolute #) 0.08 x10^3/uL (0.04-0.36); Hematocrit 36.0 % (34.1-44.9); Hemoglobin 11.5 g/dL (11.2-15.7); IMMATURE GRAN # 0.05 x10^3u/L (0.001-0.031); IMMATURE GRAN % 0.5 % (0.001-0.429); Lymphocyte (Absolute #) 1.08 x10^3/uL (1.18-3.74); Mean Corpuscular Hemoglobin 29.1 pg (25.6-32.2); Mean Corpuscular Hgb Concent. 31.9 g/dL (32.2-35.5); Monocyte (Absolute #) 1.03 x10^3/uL (0.24-0.86); NUCLEATED RBC # 0.00 x10^3u/L (0.00-0.012); NUCLEATED RBC % 0.0 % (0.00-0.2); Platelet Count 220 x10^3/uL (182-369); Red Blood Count 3.95 x10^6/uL (3.93-5.22); White Blood Count 11.1 x10^3/uL (3.98-10.04)
[2025-06-27 21:02] LABS: PROTIME > 90.0 SECONDS (9.4-12.5)
[2025-06-27 21:04] LABS: INR > 8.00 (0.8-3.0)
[2025-06-27] MEDS ORDERED: Vitamin K 10 MG/ML ONE (21:15)
[2025-06-27] MEDS: Vitamin K 10 MG/ML PO ONE (21:17)
[2025-06-27 21:54] VITALS: BP 154/77; PULSE 94; RESP 17; O2SAT 96
== END 2025-06-27 21:54 | disposition home or self-care (01) ==
LOC: ED 19:43
DX: R79.1 Abnormal coagulation profile (principal); I12.9 Hypertensive chronic kidney disease with stage 1 through stage 4 chronic kidney disease, or unspecified chronic kidney disease; N18.30 Chronic kidney disease, stage 3 unspecified; Z79.01 Long term (current) use of anticoagulants; Z79.899 Other long term (current) drug therapy